=== PATIENT | female | born 1985 | race Caucasian/White ===

== ENCOUNTER 2018-02-05 09:34 | Emergency (ER) | payer SELFPAY ==
[2018-02-05] MEDS ORDERED: 0.9 % SODIUM CHLORIDE 1,000 ML IV ONE (09:45)
[2018-02-05] MEDS ORDERED: LORazepam 2 MG/ML VIAL ONE (09:45)
[2018-02-05] MEDS ORDERED: LORazepam 2 MG/ML VIAL IVP ONE (09:46)
[2018-02-05] MEDS ORDERED: ONDANSETRON HCL/PF 4 MG/ 2ML VIAL IVP ONE (09:46)
[2018-02-05] MEDS ORDERED: PROMETHAZINE HCL 25 MG in 0.9 % SODIUM CHLORIDE 50 ML IV ONE ×2 (09:55→13:03)
[2018-02-05] MEDS ORDERED: PROMETHAZINE HCL 25 MG/ML VIAL ONE ×3 (10:02→13:38)
[2018-02-05] MEDS ORDERED: 0.9 % SODIUM CHLORIDE 100 ML IV ONE ×2 (10:03→13:12)
--- NOTE | 2018-02-05 10:04 | ED Physician Documentation ---
Seizure - HISTORIAN Historian: patient, friend - [facility] Chief Complaint: Seizure Additional Information: Patient has had seizures since 2004, no know precipitating factor noted. Patient and friend states taht she has seizures infrequently, usaually brought on by stress and or anxiety. States that she started having intermittent seizures for about 1-2 hours proir to presentation to the ED. No loss of bowel or bladder. Patient states that she ahs been taking her Keppra as prescribed. Not sure when her last level was drawn. Had been followed by a neurologist in [place]. Has recently moved to [place] and has not established a primary care provider or neurologist at this time. Seizures are characterized by some tonic clinic movement in all four extremities. Timing/Onset/Duration: multiple episodes Last known Well Date: 02/05/18 Last Known Well Time: 05:00 Last known Well Code/Unknown Code: Known Witnessed By: friend Preceding Symptoms: denies: fever, chills Character of Seizure(s): unresponsiveness, "shaking all over". denies: incontinence of urine, incontinence of stool Postictal Symptoms: other (as soon as seizures stop patient is able to talk) Location of Injury: none - ROS NEURO/PSYCH: denies: headache, fainting GI/: adominal pain, nausea, vomiting. denies: diarrhea, black stools, problems urinating - PAST HX Previous seizure/seizure disorder: long-standing Etiology: idiopathic Other History: other (celiac disease) Surgeries/Procedures: none Allergies/Adverse Reactions: Allergies Allergy/AdvReac Type Severity Reaction Status Date / Time No Known Allergies Allergy Unverified 02/05/18 10:22 Home Medications: Ambulatory Orders Medication Instructions Recorded Amitriptyline HCl 100 mg PO HS 02/05/18 LORazepam [Ativan] 1 mg PO BID 02/05/18 Levetiracetam [Keppra] 1,000 mg PO BID 02/05/18 - SOCIAL HX Smoking History: greater than 1 pack/day (1 ppd) Alcohol Use: occasionally (glass of wine at night) Drug Use: none - FAMILY HX Family History: none - VITAL SIGNS Vital Signs: Vital Signs Temp Pulse Resp BP Pulse Ox 97.5 F L 81 14 109/58 99 02/05/18 09:34 02/05/18 14:51 02/05/18 14:51 02/05/18 14:51 02/05/18 14:51 - REVIEWED ASSESSMENTS Nursing Assessment Reviewed: Yes Vitals Reviewed: Yes Progress - Results/Orders Results/Orders: 10:49 Patient is resting quietly at this time. No further seizure activity. 11:30 Patient continues to have what like like to be possible psuedoseizures. Patient is able to control them at times. Is awake, alert and conversing with staff as soon as they stop. Patient states that she seems to have the abdominal pain and nausea before the seizures start. Has had several bouts of similar symptoms where she has to go to the ED and get phendergan and Diluadid and then go home and sleep it off. Episodes occur every several months. Has never had any work-up done to determine the cause of the abdominal pain. No precipitating or modifying factors noted. I am awaiting a cll from her PCP and neurologist. 12:45 Still having some epidsodes of shaking in all four extremities while talking at times. CT scan is negative for pathology. 13:57 Nausea is better still complains of abd pain, diffuse, causing nausea. Promethazine ordered IV, most of it was lost when IV came out. Promethazine IM ordered. Patient has been trying to induce vomiting by sticking her finger down her throat. States that she has had aprocedure done for GERDs that makes it hard for her to vomit. She feels that if she vomits it will make her feel better. Has not brought anything up. Abd diffusely tender, no guarding or rebound tenderness noted. 14:16 Pateint states taht she is doing much better now that she has had the diluadid. Abd pain is gone. Abd is soft to palpation with no guarding or rebound tenderness noted. ED Results Lab/Radiology - Lab Results Lab Results: Lab Results 02/05/18 02/05/18 02/05/18 11:20 11:20 10:00 WBC RBC Hgb Hct MCV MCH MCHC RDW Plt Count Neut % (Auto) Lymph % (Auto) [place] % (Auto) Eos % (Auto) Baso % (Auto) Neut # (Auto) Lymph # (Auto) [place] # (Auto) Eos # (Auto) Baso # (Auto) Reactive Lymphs % Reactive Lymphs # Sodium 138 mmol/L mmol/L (136-145) Potassium 3.5 mmol/L mmol/L (3.5-5.1) Chloride 111 mmol/L H mmol/L (98-107) Carbon Dioxide 16 mmol/L L mmol/L (22-30) BUN 19 mg/dL H mg/dL (7-17) Creatinine 0.80 mg/dL mg/dL (0.52-1.04) Est GFR ( Amer) > 60 (60 - ) Est GFR (Non-Af Amer) > 60 (60 - ) Glucose 157 mg/dL H mg/dL (74-106) Calcium 8.9 mg/dL mg/dL (8.4-10.2) Total Bilirubin 0.3 mg/dL mg/dL (0.2-1.3) AST 20 U/L U/L (15-46) ALT 23 U/L U/L (13-69) Alkaline Phosphatase 74 U/L U/L (38-126) Total Protein 7.3 g/dL g/dL (6.3-8.2) Albumin 4.2 g/dL g/dL (3.5-5.0) Urine Color Yellow (YELLOW) Urine Appearance Clear (CLEAR) Urine pH 7.0 (5.0 - 8.0) Ur Specific [place] 1.020 (1.010-1.030) Urine Protein Negative mg/dL mg/dL (NEGATIVE) Urine Ketones 1+ mg/dL H mg/dL (NEGATIVE) Urine Occult Blood Negative (NEGATIVE) Urine Nitrite Negative (NEGATIVE) Urine Bilirubin Negative (NEGATIVE) Urine Urobilinogen 0.2 Eu Eu (0.2-1.0) Ur Leukocyte Esterase Negative (NEGATIVE) Urine Glucose Negative mg/dL mg/dL (NEGATIVE) Urine HCG, Qual Negative (NEGATIVE) Opiates Screen Negative ng/mL ng/mL (<300) Oxycodone Screen Negative ng/mL ng/mL (<100) Methadone Screen Negative ng/mL ng/mL (<200) Ur Barbiturates Screen Negative ng.mL ng.mL (<200) Tricyclic Antidepress Non negative ng/mL H ng/mL (<300) Phencyclidine Screen Negative ng/mL ng/mL (< 25) Amphetamines Screen Negative ng/mL ng/mL (<500) U Methamphetamines Scrn Negative ng/mL ng/mL (<500) MDMA Negative ng/mL ng/mL (<500) Benzodiazepines Screen Non negative ng/mL H ng/mL (<150) Urine Cocaine Screen Negative ng/mL ng/mL (<150) U Cannabinoids Screen Non negative ng/mL H ng/mL (< 50) 02/05/18 10:00 WBC 11.90 K/ul K/ul (4.00-12.00) RBC 4.57 M/ul M/ul (3.90-5.20) Hgb 13.5 g/dL g/dL (12.0-16.0) Hct 42.9 % % (34.5-46.5) MCV 94.0 fl fl (80.0-100.0) MCH 29.6 pg pg (28.0-34.0) MCHC 31.5 g/dL g/dL (30.0-36.0) RDW 13.6 % % (11.3-14.3) Plt Count 282 K/mm3 K/mm3 (130-400) Neut % (Auto) 80.8 % H % (39.0-79.0) Lymph % (Auto) 14.8 % L % (16.0-50.0) [place] % (Auto) 2.7 % % (0.0-11.0) Eos % (Auto) 0.4 % % (0.0-6.8) Baso % (Auto) 0.3 (0.0-1.5) Neut # (Auto) 9.6 # k/uL H # k/uL (1.4-7.7) Lymph # (Auto) 1.8 # k/uL # k/uL (0.6-4.0) [place] # (Auto) 0.3 # k/uL # k/uL (0.0-0.9) Eos # (Auto) 0.0 # k/uL # k/uL (0.0-0.6) Baso # (Auto) 0.0 # k/uL # k/uL (0.0-0.5) Reactive Lymphs % 1.0 % % (0.0-5.0) Reactive Lymphs # 0.1 # k/uL # k/uL (0.0-0.8) Sodium Potassium Chloride Carbon Dioxide BUN Creatinine Est GFR ( Amer) Est GFR (Non-Af Amer) Glucose Calcium Total Bilirubin AST ALT Alkaline Phosphatase Total Protein Albumin Urine Color Urine Appearance Urine pH Ur Specific [place] Urine Protein Urine Ketones Urine Occult Blood Urine Nitrite Urine Bilirubin Urine Urobilinogen Ur Leukocyte Esterase Urine Glucose Urine HCG, Qual Opiates Screen Oxycodone Screen Methadone Screen Ur Barbiturates Screen Tricyclic Antidepress Phencyclidine Screen Amphetamines Screen U Methamphetamines Scrn MDMA Benzodiazepines Screen Urine Cocaine Screen U Cannabinoids Screen - Orders Orders: ED Orders Category Date Time Status Place IV Lock 1T Care 02/05/18 09:[address] BRAIN W/O CONTRAST Stat Exams 02/05/18 Completed BENZODIAZEPINES, QUANT, URINE Routine Lab 02/05/18 12:25 Received CBC/PLATELET/DIFF Routine Lab 02/05/18 10:00 Completed CMP Routine Lab 02/05/18 10:00 Completed LEVETIRACETAM(KEPPRA) LEVEL Routine Lab 02/05/18 10:00 Received UA MACRO DIP ONLY Routine Lab 02/05/18 11:20 Completed URINE HCG Routine Lab 02/05/18 11:20 Completed Urine drug screen [DRUG SCREEN URINE MEDICAL ONLY] Lab 02/05/18 11:20 Completed Routine 0.9 % Sodium Chloride [Normal Saline] 1,000 ml Med 02/05/18 11:00 Discontinued IV .Q1H 0.9 % Sodium Chloride [Normal Saline] 1,000 ml Med 02/05/18 09:45 Discontinued IV .STK-MED 0.9 % Sodium Chloride [Sodium Chloride] 100 ml Med 02/05/18 10:03 Discontinued IV .STK-MED 0.9 % Sodium Chloride [Sodium Chloride] 100 ml Med 02/05/18 13:12 Discontinued IV .STK-MED Acetaminophen [Ofirmev] Med 02/05/18 10:07 Discontinued 1,000 mg IV NOW ONE HYDROmorphone HCL/PF [Dilaudid] Med 02/05/18 13:52 Discontinued 2 mg IM NOW ONE Ketorolac Tromethamine [Toradol] Med 02/05/18 13:00 Discontinued 30 mg IVP NOW ONE LORazepam [Ativan] Med 02/05/18 09:45 Discontinued 2 mg .ROUTE .STK-MED ONE LORazepam [Ativan] Med 02/05/18 09:46 Discontinued 2 mg IVP NOW ONE Ondansetron HCl/Pf [Zofran 4 mg/2 ml] Med 02/05/18 09:46 Discontinued 4 mg IVP NOW ONE Promethazine HCl [Phenergan] Med 02/05/18 10:02 Discontinued 25 mg .ROUTE .STK-MED ONE Promethazine HCl [Phenergan] Med 02/05/18 13:12 Discontinued 25 mg .ROUTE .STK-MED ONE Promethazine HCl [Phenergan] Med 02/05/18 13:38 Discontinued 25 mg .ROUTE .STK-MED ONE Promethazine HCl [Phenergan] Med 02/05/18 13:41 Discontinued 25 mg IM NOW ONE Promethazine HCl [Phenergan] 25 mg Med 02/05/18 09:55 Discontinued 0.9 % Sodium Chloride [Sodium Chloride] 50 ml IV NOW Promethazine HCl [Phenergan] 25 mg Med 02/05/18 13:03 Discontinued 0.9 % Sodium Chloride [Sodium Chloride] 50 ml IV NOW Seizure Physical Exam - Physical Exam General Appearance: alert, mild distress Altered Mental Status Higher Functions: alert, oriented x3, no evidence of acute CVA, mood/affect nml, abnml respond to command EENT: nml eye inspection, PERRL. No: pupils unequal, abnml fundi, laceration Neck/Back: normal inspection, thyroid normal, supple. No: lymphadenopathy, stiff neck Respiratory: no resp. distress, breath sounds nml, no evidence of rib injury. No: wheezes, rales, rhonchi CVS: reg rate & rhythm, heart sounds normal, equal pulses, no murmur, no gallop Abdomen: no organomegaly, nml bowel sounds, no distention Skin: warm/dry, normal color Extremities: normal range of motion, non-tender, normal inspection, no pedal edema Observed Seizure Activity in ED: generalized Seizure Duration: 90 (seconds) - Nexus Criteria Neg Nexus Criteria: Nexus criteria neg Discharge Clincal Impression: Seizure disorder Abdominal pain Qualifiers: Abdominal location: generalized Qualified Code(s): R10.84 - Generalized abdominal pain Referrals: Primary Doctor,No [Primary Care Provider] - 2 Days Additional Instructions: Home and rest. It is important for you to get established with a primary care provider and neurologist. Make an appointment to be seen by tomorrow. Continue with your present medications. If you have any further problems to return to the ED. Condition: Stable Disposition: 01 HOME, SELF-CARE Decision to Admit: NO Date of Decison to Admit: 02/05/18 Decision Time: 14:24
[2018-02-05 10:07] LABS: BASOPHILS % 0.3 (0.0-1.5); EOSINOPHILS % 0.4 % (0.0-6.8); MEAN CORPUSCULAR HEMOGLOBIN 29.6 pg (28.0-34.0); MONOCYTES % 2.7 % (0.0-11.0); NEUTROPHILS # 9.6 # k/uL (1.4-7.7)
[2018-02-05] MEDS ORDERED: ACETAMINOPHEN 1,000 MG/100 ML INJ IV ONE (10:07)
[2018-02-05 10:19] LABS: eGFR (African) > 60; eGFR (Non-African) > 60
[2018-02-05] MEDS ORDERED: 0.9 % SODIUM CHLORIDE 1,000 ML IV SCH (11:00)
[2018-02-05 12:25] LABS: CANNABINOIDS NON NEGATIVE ng/mL (< 50); METHYLENEDIOXYMETHAMPHETAMINE NEGATIVE ng/mL (<500)
[2018-02-05] MEDS ORDERED: KETOROLAC TROMETHAMINE 30 MG/1ML VIAL IVP ONE (13:00)
[2018-02-05] MEDS ORDERED: PROMETHAZINE HCL 25 MG/ML VIAL IM ONE (13:41)
[2018-02-05] MEDS ORDERED: HYDROmorphone HCL/PF 2 MG/ML DISP.SYRIN IM ONE (13:52)
[2018-02-05 14:20] LABS: APPEARANCE,URINE CLEAR (CLEAR); COLOR,URINE YELLOW (YELLOW); OCCULT BLOOD,URINE NEGATIVE (NEGATIVE); URINE HCG NEGATIVE (NEGATIVE); UROBILINOGEN URINE 0.2 Eu (0.2-1.0)
[2018-02-05 14:53] VITALS: BP 109/58
--- NOTE | 2018-02-05 15:47 | Diagnostic Imaging Report ---
JESUS PINEDA [facility] [address] [facility] [address] [place] [address]. [id number] Report Submission Date: Feb 05, 2018 12:14:43 PM CDT Patient Study Name: JERARDO GOVEA Date: Feb 05, 2018 11:56:46 AM CDT Modality Type: CT\SR Gender: F Description: CT BRAIN W/O CONTRAST : 87 Institution: [facility] Physician: JESUS PINEDA Examination: CT head without contrast History: SEIZURES X 1 DAY W/NAUSEA AND VOMITING (Hx) Comparison exam: None available Technique: Noncontrast head CT protocol. Findings: Ventricles and sulci are appropriate for patient age. Cerebrocerebellar parenchyma demonstrates normal attenuation. No evidence for parenchymal hemorrhage. No evidence for mass or mass effect. No midline shift. No extra axial fluid collections. Partial visualization of the paranasal sinuses , mastoid air cells, orbits, skull and scalp without gross irregularity. Impression: No acute parenchymal process. No hemorrhage. Electronically signed on Feb 05, 2018 12:14:43 PM CDT by: Jorge A DANIELS
== END 2018-02-05 14:42 | disposition home or self-care (01) ==
LOC: ED 09:34
DX: G40.909 Epilepsy, unspecified, not intractable, without status epilepticus (principal); R10.84 Generalized abdominal pain
CPT/HCPCS: 36415; 70450; 80053; 80177; 80377; 81002; 81025; 85025; J1170; J1885; J2060; J2550; J7030; 96365; 96366; 96368; 96372; 96375; 99284; G0481; S1016

== ENCOUNTER 2018-06-09 19:33 | Emergency (ER) | payer SELFPAY ==
--- NOTE | 2018-06-09 20:04 | ED Physician Documentation ---
General Adult - HPI Stated Complaint: cough x2 weeks, n/v/d Chief Complaint: General Adult Onset: other (2 weeks) Timing: still present Severity: moderate Further Comments: yes (Pt is a 33 yo female with cough x 2 weeks. Pt now also has n/v/diarrhea. Pt has rib/chest wall pain from coughing.) - ROS CONST: other (malaise) EYES/ENT: nasal congestion CVS/RESP: cough GI/: nausea (mild) MS/SKIN/LYMPH: none - PAST HX Past History: asthma, other (anxiety/depression, seizure d/o) Surgeries/Procedures: other (appendectomy) Allergies/Adverse Reactions: Allergies Allergy/AdvReac Type Severity Reaction Status Date / Time No Known Allergies Allergy Unverified 02/05/18 10:22 Home Medications: Ambulatory Orders Medication Instructions Recorded Amitriptyline HCl 100 mg PO HS 02/05/18 LORazepam [Ativan] 1 mg PO BID 02/05/18 Levetiracetam [Keppra] 1,000 mg PO BID 02/05/18 - SOCIAL HX Smoking History: cigarettes - FAMILY HX Family History: No - VITAL SIGNS Vital Signs: Vital Signs Temp Pulse Resp BP Pulse Ox 109/58 02/05/18 14:51 - REVIEWED ASSESSMENTS Nursing Assessment Reviewed: Yes Vitals Reviewed: Yes Progress - Progress Progress: Pt is not orthostatic, see nurses notes. Rx Ciprofloxacin 500 mg. Take one every 12 hours for 7 days. Rx Robitussin AC (with codeine). Take 10 ml (two teaspoons) every 6 hours as needed for cough. - EKG/XRAY/CT XRAY: chest (neg) General Adult Physical Exam - PHYSICAL EXAM GENERAL APPEARANCE: mild distress EENT: pharynx normal NECK: normal inspection, supple RESPIRATORY: no resp distress, chest non-tender, wheezes CVS: reg rate & rhythm, heart sounds normal ABDOMEN: soft, no organomegaly, normal bowel sounds BACK: normal inspection, no CVA tenderness SKIN: warm/dry, normal color EXTREMITIES: non-tender, normal range of motion, no evidence of injury, no edema NEURO: oriented X3, motor nml, sensation nml Discharge Clincal Impression: URI (upper respiratory infection) Qualifiers: URI type: unspecified URI Qualified Code(s): J06.9 - Acute upper respiratory infection, unspecified Referrals: Primary Doctor,No [Primary Care Provider] - Condition: Good Disposition: 01 HOME, SELF-CARE Decision to Admit: NO Decision Time: 22:03
[2018-06-09] MEDS ORDERED: CIPROFLOXACIN HCL 500 MG TABLET PO ONE (20:55)
[2018-06-09] MEDS ORDERED: GUAIFENESIN/CODEINE 10 ML S/F LIQUID DOSE CUP PO STA (20:55)
[2018-06-09 22:17] VITALS: BP 119/73
--- NOTE | 2018-06-10 06:41 | Diagnostic Imaging Report ---
MERNA OCHOA [facility] [address] [facility] [address] [address] Report Submission Date: Jun 09, 2018 8:51:14 PM CDT Patient Study Name: JERARDO GOVEA Date: Jun 09, 2018 8:25:42 PM CDT Modality Type: DX Gender: F Description: CHEST : 87 Institution: [facility] Physician: MERNA OCHOA Examination: PA and lateral chest. History: Evaluate lung recinos. COUGH, SHORTNESS OF BREATH X2 WEEKS (Hx) Findings: PA and lateral views of the chest demonstrates a normal cardiac and mediastinal silhouette. No focal infiltrate. No blunting of the costophrenic margins. Osseous structures are appropriate for age. Impression: No acute pulmonary process. Electronically signed on Jun 09, 2018 8:51:14 PM CDT by: Jorge A DANIELS
== END 2018-06-09 21:25 | disposition home or self-care (01) ==
LOC: ED 19:33
DX: J06.9 Acute upper respiratory infection, unspecified (principal)
CPT/HCPCS: 71046; 99283